=== PATIENT | female | born 1990 | race Two or more races ===

== ENCOUNTER 2020-07-01 15:04 | Outpatient (CLI) | payer OTHER | END 2020-07-01 15:13 | disposition home or self-care (01) | LOC: SONOGRAMA 15:04 | PROVIDERS: ATTEND Surgery | DX: N64.89 Other specified disorders of breast (principal); N60.02 Solitary cyst of left breast; N60.01 Solitary cyst of right breast ==

== ENCOUNTER 2022-04-02 10:32 | Outpatient (CLI) | payer OTHER | END 2022-04-02 10:45 | disposition home or self-care (01) | LOC: MAMO-SONO 10:32 | PROVIDERS: ATTEND Surgery | DX: N63.10 Unspecified lump in the right breast, unspecified quadrant (principal); N63.20 Unspecified lump in the left breast, unspecified quadrant ==